=== PATIENT | male | born 1995 | race African-American/Black ===

== ENCOUNTER → 2017-03-07 | Outpatient (CLI) | payer BC ==
--- NOTE | ~2017-03-07 | EKG ---
[address] [place] [address] ELECTROCARDIOGRAM REPORT Name: NURY CELIS Room #: [facility]#: [id number] Admission: 03/07/17 Attend Phys: Garima Lee MD Discharge: Date of : [birth year] Report #: [id number] THIS REPORT FOR: //name// [facility] Test Date: 2017-03-07 Test Time: 14:56:51 Pat Name: NURY CELIS Department: Room: Gender: Breadman: Makayla JAY : 1995 Requested By: Garima Lee Order Number: [id number] MD: Sajan Cho Measurements Intervals [place] Rate: 51 P: 104 AK: 173 QRS: 75 QRSD: 76 T: 59 QT: 386 QTc: 356 Interpretive Statements Sinus rhythm ST elevation suggests early repolarization No previous ECG available for comparison Electronically Signed On 03-08-2017 8:32:36 CDT by Sajan Cho [email or web address] <ELECTRONICALLY SIGNED> By: Sajan Cho MD, [facility] 03/08/17 0832 1456 1456 Sajan Cho MD, FACC /EPI
== END ==
LOC: CV 14:37
DX: R07.9 Chest pain, unspecified (principal)